=== PATIENT | male | born 1995 | race Caucasian/White ===

== ENCOUNTER → 2020-11-06 10:04 | Outpatient (BNVA) | payer OTHER, SELFPAY | PROVIDERS: Family Provider Nurse Practitioner Family; PCP Nurse Practitioner Family; Visit Provider Internal Medicine Rheumatology | DX: R76.8 Other specified abnormal immunological findings in serum (principal); M54.89 Other dorsalgia; M19.90 Unspecified osteoarthritis, unspecified site; Z79.899 Other long term (current) drug therapy; M79.10 Myalgia, unspecified site; M77.9 Enthesopathy, unspecified; Z86.16 Personal history of COVID-19 | CPT/HCPCS: 99204 ==

== ENCOUNTER → 2020-11-12 11:38 | Outpatient (BNVA) | payer OTHER, SELFPAY | PROVIDERS: Family Provider Nurse Practitioner Family; PCP Nurse Practitioner Family; Visit Provider Internal Medicine Rheumatology | DX: M19.071 Primary osteoarthritis, right ankle and foot (principal); M19.09 Primary osteoarthritis, other specified site; M19.041 Primary osteoarthritis, right hand; M54.89 Other dorsalgia; Z79.899 Other long term (current) drug therapy | CPT/HCPCS: 72170; 73130; 73630; 82306; 85651; 86140; 86431; 86480; 86704; 86803; 86812; 87340 ==